=== PATIENT | female | born 1975 | race Caucasian/White ===

== ENCOUNTER 2023-05-16 09:21 | Inpatient (IN) | payer MEDICAID ==
[~2023-05-16] VITALS: Ht 170.2 cm; Wt 104.0 kg
[2023-05-29] VITALS (12 sets, daily range): BP systolic 103–131; BP diastolic 59–71; PULSE 74–98; TEMP 97.7–98.5
[2023-05-29] MEDS ORDERED: Meclizine 25 MG TAB PO SCH (05:00)
[2023-05-29] MEDS ORDERED: LR 1,000 ML IV SCH (05:00)
[2023-05-29] MEDS ORDERED: ATARAX 25MG25 MG/TAB PO (08:47)
[2023-05-29] MEDS ORDERED: CELEBREX 1100 MG/CAP PO (08:47)
[2023-05-29] MEDS ORDERED: CRESTOR5 MG PO (08:48)
[2023-05-29] MEDS ORDERED: PROAIR HFA0.09 MG/AC IH (08:48)
[2023-05-29] MEDS ORDERED: GLUCOPHAGE XR500 M1 PO (08:49)
[2023-05-29] MEDS ORDERED: LYRICA 75MG CAP75 MG PO (08:49)
[2023-05-29] MEDS ORDERED: LEXAPRO20 MG PO (08:49)
[2023-05-29] MEDS ORDERED: TOPAMAX 25MG25 M1 PO (08:50)
[2023-05-29] MEDS ORDERED: COZAAR 50MG50 MG/TAB PO (08:50)
[2023-05-29] MEDS ORDERED: TOPROL XL 50MG50 MG PO (08:51)
[2023-05-29] MEDS ORDERED: IMITREX50 MG PO (08:51)
[2023-05-29] MEDS ORDERED: GEODON60 MG PO (08:52)
[2023-05-29] MEDS ORDERED: Lidocaine 1% w EPI (1:100,000) 20 ML Multi-Dose VIAL ONE (09:14)
[2023-05-29] MEDS ORDERED: dexAMETHasone 10 MG/ML VIAL ONE (09:15)
[2023-05-29] MEDS ORDERED: Midazolam 2 MG/2 ML VIAL ONE (09:17)
[2023-05-29] MEDS ORDERED: fentaNYL 50 MCG/ML 2 ML VIAL ONE ×2 (09:17→11:34)
[2023-05-29] MEDS ORDERED: Lidocaine PF 2% (20 MG/ML) 5 ML VIAL ONE ×2 (09:27→12:18)
[2023-05-29] MEDS ORDERED: Ondansetron 4 MG/2 ML VIAL IV PRN ×2 (11:45→15:45)
[2023-05-29] MEDS ORDERED: Metoprolol Tartrate 5 MG/5 ML VIAL IV ONE (11:45)
[2023-05-29] MEDS ORDERED: fentaNYL 50 MCG/ML 2 ML VIAL IV PRN (11:45)
[2023-05-29] MEDS ORDERED: HYDROmorphone 2 MG/1 ML VIAL IV PRN (11:45)
[2023-05-29] MEDS ORDERED: Meperidine 50 MG/ML 1 ML VIAL IV PRN (11:45)
[2023-05-29] MEDS ORDERED: LR 1,000 ML IV ONE (12:10)
[2023-05-29] MEDS ORDERED: Albuterol 0.021% Neb Soln 0.63 MG/3 ML UD IH PRN (15:45)
[2023-05-29] MEDS ORDERED: oxyCODONE/Acetaminophen 5-325 MG TAB PO PRN (15:45)
[2023-05-29] MEDS ORDERED: Morphine 4 MG/ML VIAL IV PRN (15:45)
--- NOTE | 2023-05-29 15:45 | NUR ---
0815 Patient arrives via wheel chair from radiology department. Patient is alert and oriented. Consents reviewed and signed by patient. IV established in right hand. LR infusing via dial a flow at [facility]. Call light is in reach. Warm blanket provided.
--- NOTE | 2023-05-29 15:45 | NUR ---
pt admitted to room from pacu, a&ox4. vss. med rec and admission assessment complete. dressings are cdi. x2 DEVANTE drains in place w minimal bloody output. pt tolerating water, wanting to eat some food. LUE restriction in place. pt oriented to room. scds to ble. pt on 2L nasal cannula. fluids infusing into right ac IV. Call light in reach.
[2023-05-29] MEDS ORDERED: hydrOXYzine HCl 25 MG TAB PO SCH (21:00)
[2023-05-29] MEDS ORDERED: Atorvastatin 10 MG TAB PO SCH (21:00)
[2023-05-29] MEDS ORDERED: Ziprasidone 20 MG CAP PO SCH (21:00)
[2023-05-29] MEDS ORDERED: Pregabalin 75 MG CAP PO SCH (21:00)
[2023-05-29] MEDS ORDERED: Celecoxib 100 MG CAP PO SCH (21:00)
[2023-05-29] MEDS ORDERED: Rosuvastatin 5 MG **** subs to Atorvastatin 10 MG PO SCH (21:00)
[2023-05-29] MEDS ORDERED: metFORMIN XR 500 MG TAB PO SCH (21:00)
[2023-05-29] MEDS ORDERED: Topiramate 25 MG TAB PO SCH (21:00)
--- NOTE | 2023-05-29 22:15 | NUR ---
Patient resting in bed. Rates pain at 8/10 at this time, prn pain meds given. Needs met. Assessment complete. Dressing CDI and both DEVANTE drains draining. IV in right AC flushes easily with no complications. Call light and personal items in reach. Bed in low position and bed alarm on.
[2023-05-30] VITALS (12 sets, daily range): BP systolic 104–138; BP diastolic 58–81; PULSE 69–90; TEMP 98–98.6
--- NOTE | 2023-05-30 06:00 | NUR ---
Patient resting in bed with eyes closed. Respirations even and unlabored. No signs of pain or needs at this time. Call light and personal items in reach. Bed in low position and bed alarm on.
[2023-05-30] MEDS ORDERED: Losartan 50 MG TAB PO SCH (09:00)
[2023-05-30] MEDS ORDERED: Escitalopram 10 MG TAB PO SCH (09:00)
--- NOTE | 2023-05-30 09:52 | NUR ---
PT RESTING IN BED WITH PAIN 8/10 IN BILATERAL CHEST. PRN PAIN MEDICATION PROVIDED PER EMAR. STEADY GATI AROUND ROOM, DEVANTE DRAIN X2 TO BULB SUCTION AND BRIGHT RED DRAINAGE. PT REPORTS PASSING GAS BUT NO BM. GAUZE DRESSING TO BILATERAL CHEST CLEAN AND DRY. PT REQUESTED TO BE TAKEN OUTSIDE TO VAPE, PT EDUCATED ON OUR SMOKING POLICY. NICOTINE PATCH REQUESTED. WILL DISCUSS REQUEST WITH DR DURING ROUNDS. WILL CONTINUE TO MONITOR.
--- NOTE | 2023-05-30 14:59 | NUR ---
Station Master met with patient at bedside to discuss discharge planning. Patient lying in dark room resting with video playing. Patient verified that she lives in [place], [place] with her daughter Alexa Loza ([phone]) and her son in law Phil Roa ([phone]). Patient states that Alexa is her DPOA, asked patient to have Alexa bring a copy to have on file at hospital. Patient sees Dr. Siegel as her PCP and uses [facility] in [place]. Patient denies having any DME. Patient plans to return home with family at discharge and denies any needs at this time. Family will transport at discharge. Discharge Plan: Home
--- NOTE | 2023-05-30 20:50 | NUR ---
Patient resting in bed. Rates pain at 8/10, prn pain meds given. Needs met. Assessment complete. IV in right AC flushes easily with no complications. Dressings to left and right chest are CDI. DEVANTE drains on left and right draining adequately. Call light and personal items in reach. Bed in low position.
[2023-05-31 00:20] VITALS: BP_SYST 138
[2023-05-31 03:57] VITALS: BP 99/68; PULSE 70; TEMP 97.9
[2023-05-31 04:21] VITALS: BP_SYST 99
--- NOTE | 2023-05-31 05:56 | NUR ---
Patient resting in bed with eyes closed. Respirations even and unlabored at this time. No signs of pain or needs at this time. No changes over night. Call light and personal items in reach. Bed in low position and bed alarm on.
[2023-05-31 07:54] VITALS: BP 105/67; PULSE 72; TEMP 98.4
[2023-05-31 08:56] VITALS: BP_SYST 105
--- NOTE | 2023-05-31 09:00 | NUR ---
PT RESTING IN BED WITH NO PAIN AT THIS TIME. STEADY GAIT AROUND ROOM, DRESSINGS CLEAN DRY, AND INTACT. TOLERATING DEIT WELL. PT EMPTYING DEVANTE DRAINS AND STAFF MEASURING AND DOCUMENTING. PT DOING WELL WITH DEVANTE DRAIN CARE AND FEELS COMFIDENT FOR DISCHARGE. WILL CONTINUE TO MONITOR.
[2023-05-31] MEDS ORDERED: PERCOCET 325 MG1 TA2 PO (09:33)
--- NOTE | 2023-05-31 11:18 | NUR ---
DISCHARGE INSTRUCTIONS PROVIDED. DISCUSSED FOLLOW UP APPOINTMENTS, NEW MEDICATION, AND SIGNS OF INFECTION. NO QUESTIONS AT THIS TIME. IV REMOVED. PT AND BELONGINGS ESCORTED OUT OF BUILDING VIA WHEELCHAIR AT THIS TIME.
== END 2023-05-31 11:20 | disposition home or self-care (01) | DRG 580 ==
LOC: SURG 05-29 07:50 → INPTSU 05-29 07:50 → SURG 05-29 11:00
PROVIDERS: ADMIT Surgery
PROC: 0HTU0ZZ Resection of Left Breast, Open Approach (ICD-10-PCS; principal; 2023-05-29 11:00)
PROC: 07B60ZX Excision of Left Axillary Lymphatic, Open Approach, Diagnostic (ICD-10-PCS; 2023-05-29 11:00)
PROC: 0HBT0ZZ Excision of Right Breast, Open Approach (ICD-10-PCS; 2023-05-29 11:00)
DX: C50.112 Malignant neoplasm of central portion of left female breast (principal); C77.3 Secondary and unspecified malignant neoplasm of axilla and upper limb lymph nodes; F32.A Depression, unspecified; F20.9 Schizophrenia, unspecified; E11.9 Type 2 diabetes mellitus without complications; Z79.84 Long term (current) use of oral hypoglycemic drugs
CPT/HCPCS: A4648; A9520-JZ; J0690; J1100; J1170; J2250; J2405; J2704; J2795; J3010; J7120

== ENCOUNTER → 2023-06-20 | Outpatient (REF) | payer MEDICAID ==
[~2023-06-20] MED LIST: ATARAX 25MG25 MG/TAB PO; CELEBREX 1100 MG/CAP PO; COZAAR 50MG50 MG/TAB PO; CRESTOR5 MG PO; GEODON60 MG PO; GLUCOPHAGE XR500 M1 PO; IMITREX50 MG PO; LEXAPRO20 MG PO; LYRICA 75MG CAP75 MG PO; PERCOCET 325 MG1 TA2 PO; PROAIR HFA0.09 MG/AC IH; TOPAMAX 25MG25 M1 PO; TOPROL XL 50MG50 MG PO
== END ==
LOC: ZCOL.LAB 17:17
DX: Z01.89 Encounter for other specified special examinations (principal)